=== PATIENT | female | born 1990 | race Two or more races ===

== ENCOUNTER 2017-01-26 14:40 | Emergency (ER) | payer OTHER ==
[~2017-01-26] VITALS: Ht 160 cm; Wt 70.9 kg
[2017-01-26 14:41] VITALS: BP 120/60
[2017-01-27] MEDS ORDERED: PROA1AER INH (09:59)
[2017-01-27] MEDS ORDERED: ULTR50TA PO (10:29)
[2017-01-27] MEDS ORDERED: NAPR500T PO (10:29)
[2017-01-27] MEDS ORDERED: ROBA500T PO (10:29)
== END 2017-01-26 17:30 | disposition left against medical advice (07) ==
LOC: M ED 15:06
DX: M54.9 Dorsalgia, unspecified (principal); Z53.21 Procedure and treatment not carried out due to patient leaving prior to being seen by health care provider

== ENCOUNTER 2017-01-26 19:20 | Emergency (ER) | payer OTHER ==
[~2017-01-26] VITALS: Ht 160 cm; Wt 70.8 kg
[2017-01-26 19:22] VITALS: BP 126/72
[2017-01-26] MEDS ORDERED: METHOCARBAMOL 1,000 MG/10 ML VIAL (J2800) IM ONE (22:30)
[2017-01-26] MEDS ORDERED: KETOROLAC 30 MG/ML VIAL (J1885) IM ONE (22:30)
[2017-01-27] MEDS ORDERED: PROA1AER INH (09:59)
[2017-01-27] MEDS ORDERED: NAPR500T PO (10:29)
[2017-01-27] MEDS ORDERED: ULTR50TA PO (10:29)
[2017-01-27] MEDS ORDERED: ROBA500T PO (10:29)
== END 2017-01-26 22:37 | disposition left against medical advice (07) ==
LOC: M ED 20:22
DX: M54.5 Low back pain (principal)

== ENCOUNTER 2017-01-27 09:50 | Emergency (ER) | payer OTHER ==
[~2017-01-27] VITALS: Ht 160 cm; Wt 70.8 kg
[2017-01-27] MEDS ORDERED: PROA1AER INH (09:59)
[2017-01-27] MEDS ORDERED: NAPR500T PO (10:29)
[2017-01-27] MEDS ORDERED: ROBA500T PO (10:29)
[2017-01-27] MEDS ORDERED: ULTR50TA PO (10:29)
[2017-01-27] MEDS ORDERED: KETOROLAC 30 MG/ML VIAL (J1885) IM ONE (10:30)
[2017-01-27 10:59] VITALS: BP 128/74
== END 2017-01-27 11:00 | disposition home or self-care (01) ==
LOC: M ED 10:05
DX: S39.012A Strain of muscle, fascia and tendon of lower back, initial encounter (principal); X58.XXXA Exposure to other specified factors, initial encounter; Y92.9 Unspecified place or not applicable; Y93.9 Activity, unspecified; Y99.9 Unspecified external cause status; M51.36 Other intervertebral disc degeneration, lumbar region; J45.909 Unspecified asthma, uncomplicated; Z79.899 Other long term (current) drug therapy
CPT/HCPCS: 81025; 96372; 99282; J1885

== ENCOUNTER 2017-03-13 07:22 | Emergency (ER) | payer OTHER ==
[~2017-03-13] VITALS: Ht 160 cm; Wt 68.0 kg
[~2017-03-13 07:22] MED LIST: NAPR500T PO; PROA1AER INH; ROBA500T PO; ULTR50TA PO
[2017-03-13] MEDS ORDERED: ONDANSETRON 4MG/2ML VIAL (J2405) IV ONE (08:00)
[2017-03-13] MEDS ORDERED: HYDROmorphone HCL 1 MG/ML SYRINGE (J1170) IV ONE ×2 (08:00→08:30)
[2017-03-13] MEDS ORDERED: NS 1,000 ML IV ONE (08:15)
[2017-03-13] MEDS ORDERED: KETOROLAC 30 MG/ML VIAL (J1885) IV ONE (08:30)
[2017-03-13 08:34] LABS: CONTROL LINE HCG INT CTR LINE PRESENT
[2017-03-13 08:37] LABS: BASO % 0.3 % (0.0-1.0); EOS # 0.2 K/mm3 (0.0-0.50); EOS % 1.2 % (0.0-3.0); LARGE UNSTAINED CELL # 0.2 K/mm3 (0.0-0.4); LARGE UNSTAINED CELL % 1.2 % (0.0-4.0); LYMPH # 4.4 K/mm3 (1.5-6.5); LYMPH % 27.6 % (24.0-44.0); MEAN CORPUSCULAR HEMOGLOBIN 31.3 pg (27.0-33.0); MEAN CORPUSCULAR HGB CONC 34.6 g/dl (32.0-36.5); MEAN CORPUSCULAR VOLUME 90.4 fl (80.0-96.0); MONO # 0.8 K/mm3 (0.0-0.8); MONO % 5.3 % (0.0-5.0); NEUTROPHILS # 10.2 K/mm3 (1.8-7.7); NEUTROPHILS % 64.4 % (36.0-66.0); PLATELET COUNT, AUTOMATED 342 k/mm3 (150-450); RED CELL DISTRIBUTION WIDTH 12.8 % (11.5-14.5); WHITE BLOOD COUNT 15.8 K/mm3 (4.0-10.0)
[2017-03-13 08:38] LABS: ALBUMIN 4.2 GM/DL (3.2-5.2); ALBUMIN/GLOBULIN RATIO 1.27 (1.00-1.93); ALKALINE PHOSPHATASE 62 U/L (45-117); ALT/SGPT 22 U/L (12-78); ANION GAP 9 MEQ/L (8-16); AST/SGOT 14 U/L (15-37); BILIRUBIN,DIRECT 0.2 MG/DL (0.0-0.2); BILIRUBIN,TOTAL 0.6 MG/DL (0.2-1.0); BLOOD UREA NITROGEN 11 MG/DL (7-18); CALCIUM LEVEL 8.9 MG/DL (8.5-10.1); CARBON DIOXIDE LEVEL 27 MEQ/L (21-32); CHLORIDE LEVEL 106 MEQ/L (98-107); CREATININE FOR GFR 1.04 MG/DL (0.55-1.02); GLOMERULAR FILTRATION RATE > 60.0 (>60); GLUCOSE, FASTING 103 MG/DL (70-105); POTASSIUM SERUM 3.2 MEQ/L (3.5-5.1); SODIUM LEVEL 142 MEQ/L (136-145); TOTAL PROTEIN 7.5 GM/DL (6.4-8.2)
[2017-03-13] MEDS ORDERED: ISOVUE-370 76% 100ML VIAL (Q9967) As Ordered ONE (09:40)
[2017-03-13] MEDS ORDERED: MORPHINE 4 MG/ML 1ML SYRINGE IV ONE (10:00)
--- NOTE | 2017-03-13 11:17 | REP ---
CT ABDOMEN AND PELVIS WITH IV CONTRAST: TECHNIQUE: Axial contrast enhanced images from the lung bases to the pubic symphysis using 100 mL Isovue 370 intravenous contrast material with multiplanar reformations. COMPARISON: 02/20/2016. The visualized lung bases demonstrate no infiltrate. The liver, spleen, adrenals and pancreas are normal in appearance. The right kidney appears normal. Left kidney demonstrates mild hydronephrosis and there is also mild left hydroureter caused by a 3 mm calculus in the distal left ureter. There is no abdominal aortic aneurysm. There is no adenopathy. There is no free air or free fluid. No pelvic mass is seen. There is metallic internal fixation in the proximal right femur. 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 IMPRESSION: Mild left hydroureteronephrosis caused by a 3 mm calculus in the distal left ureter. No evidence of appendicitis or other acute abnormality. Signed by Magen Lopez MD 03/13/2017 04:37 P
[2017-03-13] MEDS ORDERED: CIPR500T89 PO (12:32)
[2017-03-13] MEDS ORDERED: FLOM5CAP PO (12:35)
[2017-03-13] MEDS ORDERED: PERC5TAB6 PO (12:36)
[2017-03-13 12:52] VITALS: BP 124/68
== END 2017-03-13 12:53 | disposition home or self-care (01) ==
LOC: M ED 08:05
DX: N20.1 Calculus of ureter (principal); N39.0 Urinary tract infection, site not specified
CPT/HCPCS: 74177; 80048; 80076; 81001; 83605; 83690; 84703; 85025; 87086; 93041; 96374; 96375; 96376; 99285; J1170; J1885; J2405; Q9967

== ENCOUNTER 2017-03-29 09:53 | Emergency (ER) | payer OTHER ==
[~2017-03-29] VITALS: Ht 160 cm; Wt 68.0 kg
[~2017-03-29 09:53] MED LIST changes: +CIPR500T89 PO; +FLOM5CAP PO; +PERC5TAB6 PO
[2017-03-29] MEDS ORDERED: KETOROLAC 30 MG/ML VIAL (J1885) IV ONE (10:30)
[2017-03-29] MEDS ORDERED: ONDANSETRON 4MG/2ML VIAL (J2405) IV ONE (10:30)
[2017-03-29 10:45] LABS: BASO % 0.5 % (0.0-1.0); EOS # 0.2 K/mm3 (0.0-0.50); EOS % 2.7 % (0.0-3.0); LARGE UNSTAINED CELL # 0.1 K/mm3 (0.0-0.4); LARGE UNSTAINED CELL % 0.9 % (0.0-4.0); LYMPH # 1.7 K/mm3 (1.5-6.5); LYMPH % 21.2 % (24.0-44.0); MEAN CORPUSCULAR HEMOGLOBIN 29.5 pg (27.0-33.0); MEAN CORPUSCULAR HGB CONC 32.9 g/dl (32.0-36.5); MEAN CORPUSCULAR VOLUME 89.7 fl (80.0-96.0); MONO # 0.2 K/mm3 (0.0-0.8); MONO % 3.1 % (0.0-5.0); NEUTROPHILS # 5.4 K/mm3 (1.8-7.7); NEUTROPHILS % 71.5 % (36.0-66.0); PLATELET COUNT, AUTOMATED 340 k/mm3 (150-450); RED CELL DISTRIBUTION WIDTH 12.5 % (11.5-14.5); WHITE BLOOD COUNT 7.6 K/mm3 (4.0-10.0)
[2017-03-29 11:00] LABS: ANION GAP 5 MEQ/L (8-16); BLOOD UREA NITROGEN 11 MG/DL (7-18); CALCIUM LEVEL 9.2 MG/DL (8.5-10.1); CARBON DIOXIDE LEVEL 29 MEQ/L (21-32); CHLORIDE LEVEL 106 MEQ/L (98-107); CREATININE FOR GFR 0.72 MG/DL (0.55-1.02); GLOMERULAR FILTRATION RATE > 60.0 (>60); GLUCOSE, FASTING 82 MG/DL (70-105); POTASSIUM SERUM 4.3 MEQ/L (3.5-5.1); SODIUM LEVEL 140 MEQ/L (136-145)
[2017-03-29] MEDS ORDERED: ZOFR4TAB3 PO (11:47)
[2017-03-29] MEDS ORDERED: NORCOTAB PO (11:47)
[2017-03-29 11:59] VITALS: BP 127/76
--- NOTE | 2017-03-29 12:03 | REP ---
RENAL ULTRASOUND: Real-time sonographic evaluation of the kidneys performed. The kidneys are normal in size and echotexture, right kidney measuring 11.3 x 4.8 x 5.6 cm and left kidney 12.0 x 6.0 x 6.5 cm. There is no hydronephrosis bilaterally. There appears to be a 6 mm intrarenal calculus within the right collecting system 6 mm in diameter. No renal mass is seen. Urinary bladder is empty and cannot be evaluated. IMPRESSION: No hydronephrosis. There appears to be an intrarenal calculus on the right measuring 6 mm in diameter. Signed by Magen Lopez MD 03/29/2017 07:56 P
== END 2017-03-29 12:11 | disposition home or self-care (01) ==
LOC: M ED 10:51
DX: N20.0 Calculus of kidney (principal)
CPT/HCPCS: 76775; 80048; 81001; 81025; 85025; 86140; 87086; 96374; 96375; 99283; J1885; J2405

== ENCOUNTER 2017-04-29 21:37 | Emergency (ER) | payer OTHER ==
[~2017-04-29] VITALS: Ht 160 cm; Wt 69.8 kg
[~2017-04-29 21:37] MED LIST changes: +NORCOTAB PO; +ZOFR4TAB3 PO
[2017-04-29] MEDS ORDERED: SYMB16INH INH (21:51)
[2017-04-29 22:56] LABS: CONTROL LINE HCG INT CTR LINE PRESENT
[2017-04-29 23:00] LABS: BASO % 0.5 % (0.0-1.0); EOS # 0.2 K/mm3 (0.0-0.50); EOS % 1.9 % (0.0-3.0); LARGE UNSTAINED CELL # 0.1 K/mm3 (0.0-0.4); LARGE UNSTAINED CELL % 1.2 % (0.0-4.0); LYMPH # 3.3 K/mm3 (1.5-6.5); MEAN CORPUSCULAR VOLUME 90.9 fl (80.0-96.0); MONO # 0.5 K/mm3 (0.0-0.8); MONO % 4.5 % (0.0-5.0); NEUTROPHILS # 6.8 K/mm3 (1.8-7.7); NEUTROPHILS % 62.9 % (36.0-66.0); PLATELET COUNT, AUTOMATED 316 k/mm3 (150-450); RED CELL DISTRIBUTION WIDTH 12.5 % (11.5-14.5); WHITE BLOOD COUNT 10.8 K/mm3 (4.0-10.0)
[2017-04-29 23:06] LABS: ALBUMIN/GLOBULIN RATIO 1.25 (1.00-1.93); ALKALINE PHOSPHATASE 61 U/L (45-117); ALT/SGPT 26 U/L (12-78); AMYLASE 63 U/L (25-115); ANION GAP 5 MEQ/L (8-16); AST/SGOT 18 U/L (15-37); BILIRUBIN,DIRECT < 0.1 MG/DL (0.0-0.2); BILIRUBIN,TOTAL 0.3 MG/DL (0.2-1.0); BLOOD UREA NITROGEN 10 MG/DL (7-18); CALCIUM LEVEL 8.8 MG/DL (8.5-10.1); CARBON DIOXIDE LEVEL 29 MEQ/L (21-32); CHLORIDE LEVEL 106 MEQ/L (98-107); CREATININE FOR GFR 0.74 MG/DL (0.55-1.02); GLOMERULAR FILTRATION RATE > 60.0 (>60); GLUCOSE, FASTING 78 MG/DL (70-105); POTASSIUM SERUM 3.7 MEQ/L (3.5-5.1); SODIUM LEVEL 140 MEQ/L (136-145); TOTAL PROTEIN 7.2 GM/DL (6.4-8.2)
--- NOTE | 2017-04-30 00:30 | REPUSA ---
Clinical history: Pain. Findings: Real-time transabdominal and transvaginal ultrasound images of the pelvis were obtained. An anteverted uterus is noted, measuring 6.9 x 3.6 x 4.2 cm. The uterus demonstrates normal echotexture and echogenicity There is a intrauterine gestational sac noted. The mean sac diameter measures 2.2 m m. No pole or yolk sac is identified however. There is no evidence of a subchorionic hemorrhage . The right ovary measures 2.8 x 2.1 x 2.2 cm. The left ovary measures 4.1 x 2.6 x 2.5 cm. A compl ex left ovarian cyst measures 2.1 x 2.1 x 1.6 cm. No adnexal masses are seen. Color Doppler flow is seen within both ovaries. There is no evidence of free fluid. Impression: 1. Small intrauterine gestational sac measuring 4 weeks 6 days by ultrasound measurements. No p ole is identified at this time. This is likely because of the early age of the , although mi ssed and ectopic are still considerations. Follow-up with serial serum beta hCG le vels is recommended for further evaluation. 2. Complex left ovarian corpus luteum cyst. LAUME
[2017-04-30 01:34] VITALS: BP 103/68
[2017-04-30 02:06] LABS: HCG, SERUM QUANTITATIVE 966 MIU/ML
== END 2017-04-30 01:47 | disposition home or self-care (01) ==
LOC: M ED 22:31
DX: O26.891 Other specified pregnancy related conditions, first trimester (principal); M54.9 Dorsalgia, unspecified; Z3A.08 8 weeks gestation of pregnancy; O99.331 Smoking (tobacco) complicating pregnancy, first trimester; F17.210 Nicotine dependence, cigarettes, uncomplicated

== ENCOUNTER 2017-05-01 09:16 | Emergency (ER) | payer OTHER ==
[~2017-05-01] VITALS: Ht 162.6 cm; Wt 70.9 kg
[~2017-05-01 09:16] MED LIST changes: +SYMB16INH INH
[2017-05-01 10:49] LABS: BASO % 0.3 % (0.0-1.0); EOS # 0.1 K/mm3 (0.0-0.50); EOS % 1.5 % (0.0-3.0); LARGE UNSTAINED CELL # 0.1 K/mm3 (0.0-0.4); LARGE UNSTAINED CELL % 1.4 % (0.0-4.0); LYMPH # 2.1 K/mm3 (1.5-6.5); LYMPH % 26.4 % (24.0-44.0); MEAN CORPUSCULAR HEMOGLOBIN 30.9 pg (27.0-33.0); MEAN CORPUSCULAR HGB CONC 33.4 g/dl (32.0-36.5); MEAN CORPUSCULAR VOLUME 92.5 fl (80.0-96.0); MONO # 0.3 K/mm3 (0.0-0.8); MONO % 4.1 % (0.0-5.0); NEUTROPHILS # 5.3 K/mm3 (1.8-7.7); NEUTROPHILS % 66.3 % (36.0-66.0); PLATELET COUNT, AUTOMATED 327 k/mm3 (150-450); RED CELL DISTRIBUTION WIDTH 12.4 % (11.5-14.5)
[2017-05-01] MEDS ORDERED: AZITHROMYCIN 250 MG TAB PO ONE (13:00)
[2017-05-01] MEDS ORDERED: RHOGAM 300 MCG (1500 IU) INJ (J2790) IM SCH (13:15)
[2017-05-01 15:22] VITALS: BP 117/65
== END 2017-05-01 15:24 | disposition home or self-care (01) ==
LOC: M ED 10:12
DX: O20.0 Threatened abortion (principal); Z20.2 Contact with and (suspected) exposure to infections with a predominantly sexual mode of transmission; O99.511 Diseases of the respiratory system complicating pregnancy, first trimester; J45.909 Unspecified asthma, uncomplicated; Z3A.00 Weeks of gestation of pregnancy not specified; Z79.899 Other long term (current) drug therapy

== ENCOUNTER 2017-05-04 13:45 | Emergency (ER) | payer OTHER ==
[~2017-05-04] VITALS: Ht 160 cm; Wt 70.7 kg
[2017-05-04 15:29] VITALS: BP 132/69
== END 2017-05-04 15:42 | disposition home or self-care (01) ==
LOC: M ED 14:42
DX: O20.0 Threatened abortion (principal); Z87.891 Personal history of nicotine dependence; Z3A.00 Weeks of gestation of pregnancy not specified

== ENCOUNTER → 2017-05-06 | Outpatient (CLI) | payer OTHER | LOC: M LAB 09:26 | PROVIDERS: ATTEND Nurse Practitioner Family | DX: O20.0 Threatened abortion (principal) ==

== ENCOUNTER → 2017-05-09 | Outpatient (CLI) | payer OTHER ==
[2017-05-09 11:43] LABS: BASO % 0.2 % (0.0-1.0); EOS # 0.1 K/mm3 (0.0-0.50); EOS % 0.7 % (0.0-3.0); LARGE UNSTAINED CELL # 0.1 K/mm3 (0.0-0.4); LARGE UNSTAINED CELL % 0.9 % (0.0-4.0); LYMPH # 1.9 K/mm3 (1.5-6.5); LYMPH % 19.3 % (24.0-44.0); MEAN CORPUSCULAR HEMOGLOBIN 30.5 pg (27.0-33.0); MEAN CORPUSCULAR HGB CONC 33.8 g/dl (32.0-36.5); MEAN CORPUSCULAR VOLUME 90.3 fl (80.0-96.0); MONO # 0.4 K/mm3 (0.0-0.8); MONO % 3.9 % (0.0-5.0); NEUTROPHILS # 7.2 K/mm3 (1.8-7.7); NEUTROPHILS % 74.9 % (36.0-66.0); PLATELET COUNT, AUTOMATED 337 k/mm3 (150-450); RED CELL DISTRIBUTION WIDTH 12.4 % (11.5-14.5); WHITE BLOOD COUNT 9.5 K/mm3 (4.0-10.0)
[2017-05-11 10:04] LABS: HBsAg Prenatal NEGATIVE (NEGATIVE)
== END ==
LOC: M LAB 10:59
PROVIDERS: ATTEND Advanced Practice Midwife
DX: Z34.81 Encounter for supervision of other normal pregnancy, first trimester (principal)

== ENCOUNTER → 2017-06-12 | Outpatient (CLI) | payer OTHER, SELFPAY ==
[~2017-06-12] MED LIST changes: +CIPR-249 PO; -CIPR500T89 PO; +FLAG500T PO; +PERC5TAB12 PO; -PERC5TAB6 PO; +PRENTAB52 PO; -PROA1AER INH; +PROAAER10 INH; -ULTR50TA PO; +ULTR50TA8 PO
--- NOTE | 2017-06-12 13:48 | REP ---
RENAL ULTRASOUND: Real-time sonographic evaluation of the kidneys performed and demonstrates both kidneys to be normal in size and echotexture, right kidney measuring 11.6 x 6.3 x 5.6 cm and left kidney 11.6 x 6.0 x 5.2 cm. There is no hydronephrosis bilaterally and no evidence of renal mass. Possible 6 mm calculus is seen in the upper pole of the right kidney. Patient is and the intrauterine fetus demonstrates a heart rate of 175 beats per minute. Urinary bladder is only minimally distended and not optimally evaluated. IMPRESSION: No hydronephrosis bilaterally. Possible 6 mm calculus in the upper pole of the right renal collecting system. Signed by Magen Lopez MD 06/12/2017 03:31 P
== END ==
LOC: M RAD 11:17
PROVIDERS: ATTEND Advanced Practice Midwife
DX: N28.1 Cyst of kidney, acquired (principal)

== ENCOUNTER → 2017-06-25 | Outpatient (CLI) | payer MEDICAID, OTHER, SELFPAY ==
[2017-06-25 18:15] LABS: MEAN CORPUSCULAR HEMOGLOBIN 30.6 pg (27.0-33.0); MEAN CORPUSCULAR HGB CONC 33.6 g/dl (32.0-36.5); MEAN CORPUSCULAR VOLUME 91.2 fl (80.0-96.0); RED CELL DISTRIBUTION WIDTH 12.8 % (11.5-14.5); WHITE BLOOD COUNT 9.6 K/mm3 (4.0-10.0)
[2017-06-25 18:42] LABS: ALBUMIN 3.8 GM/DL (3.2-5.2); ANION GAP 7 MEQ/L (8-16); BLOOD UREA NITROGEN 6 MG/DL (7-18); CALCIUM LEVEL 9.4 MG/DL (8.5-10.1); CARBON DIOXIDE LEVEL 26 MEQ/L (21-32); CHLORIDE LEVEL 103 MEQ/L (98-107); CREATININE FOR GFR 0.51 MG/DL (0.55-1.02); GLOMERULAR FILTRATION RATE > 60.0 (>60); GLUCOSE, FASTING 83 MG/DL (70-105); PHOSPHORUS LEVEL 3.9 MG/DL (2.5-4.9); POTASSIUM SERUM 4.2 MEQ/L (3.5-5.1); SODIUM LEVEL 136 MEQ/L (136-145)
== END ==
LOC: M SMT 11:06
PROVIDERS: ATTEND Advanced Practice Midwife
DX: Z34.81 Encounter for supervision of other normal pregnancy, first trimester (principal); M54.5 Low back pain

== ENCOUNTER 2017-07-13 10:12 | Emergency (ER) | payer MEDICAID, OTHER, SELFPAY ==
[~2017-07-13] VITALS: Ht 157.5 cm; Wt 73.7 kg
[~2017-07-13 10:12] MED LIST changes: -FLAG500T PO
[2017-07-13] MEDS ORDERED: ACETAMINOPHEN 325 MG TAB PO ONE (12:15)
--- NOTE | 2017-07-13 13:33 | REP ---
OB ULTRASOUND: Real-time sonographic evaluation of gravid uterus performed. There is a single living intrauterine gestation, estimated gestational age 15 weeks 3 days, EDC 01/01/2018, with today's measurements indicating appropriate growth. BPD 32 mm = 16 weeks 0 days, 75th percentile HC 118 mm = 15 weeks 6 days, 66th percentile AC 98 mm = 15 weeks 6 days, 62nd percentile Femur length 18 mm = 15 weeks 2 days, 46th percentile HC/AC ratio 1.21, within normal range. Estimated weight 130 grams, 51st percentile. Cervix is closed and measures 2.9 cm in length. heart rate 147 beats per minute. There is no subchorionic hemorrhage. Placenta is anterior with no previa. No maternal adnexal region abnormalities are seen. Signed by Magen Lopez MD 07/13/2017 04:36 P
[2017-07-13] MEDS ORDERED: FLAG500T PO (13:34)
[2017-07-13 13:43] VITALS: BP 131/73
[2017-07-13] MEDS ORDERED: metroNIDAZOLE (FLAGYL) 500 MG TAB PO ONE (13:45)
== END 2017-07-13 13:47 | disposition home or self-care (01) ==
LOC: M ED 10:12
DX: O23.592 Infection of other part of genital tract in pregnancy, second trimester (principal); Z3A.14 14 weeks gestation of pregnancy

== ENCOUNTER 2017-07-29 13:30 | Emergency (ER) | payer MEDICAID, OTHER ==
[~2017-07-29] VITALS: Ht 160 cm; Wt 74.1 kg
[~2017-07-29 13:30] MED LIST changes: +FLAG500T PO
--- NOTE | 2017-07-29 15:07 | REP ---
Clinical: Decreased motion. Comparison: 07/13/2017. Findings: Examination demonstrates a single live intrauterine in cephalic presentation. motion is identified by technologist. Placenta is noted anteriorly and grade zero without evidence for placenta previa or abruption. Amniotic fluid volume is normal. Cervix measures 4.9 cm in length and appears closed. No evidence for nuchal cord. Gestational age by LMP 17 weeks 5 day with CHRISTOFER 01/01/2018 . Gestational age by current measurements 17 week 6 day with CHRISTOFER 12/31/2017 . FHR equals 163 beats per minute. BPD 4.2 cm 18 weeks 4 days HC 14.8 cm 17 weeks 6 days AC 12.3 cm 18 weeks 0 days FL 2.5 cm 17 weeks 3 days HL 2.4 cm 817 weeks 4 days HC/AC ratio 1.20 Estimated weight 208 grams ( 49th percentile). Impression: Single live intrauterine in cephalic presentation demonstrating appropriate interval growth. motion is appreciated. No gross abnormalities are identified. Complete anatomical assessment should be performed at 20 - 21 weeks. Signed by Suhail Pérez MD 07/29/2017 02:59 P
[2017-07-29 15:28] VITALS: BP 128/69
== END 2017-07-29 15:30 | disposition home or self-care (01) ==
LOC: M ED 13:30
DX: O26.892 Other specified pregnancy related conditions, second trimester (principal); O99.512 Diseases of the respiratory system complicating pregnancy, second trimester; J45.909 Unspecified asthma, uncomplicated; Z87.442 Personal history of urinary calculi; Z91.030 Bee allergy status; Z3A.17 17 weeks gestation of pregnancy

== ENCOUNTER → 2017-08-17 | Outpatient (CLI) | payer MEDICAID, OTHER ==
--- NOTE | 2017-08-17 11:55 | REP ---
Obstetric ultrasound for anatomy: There is a single intrauterine gestation in a breech presentation. There is motion and cardiac activity. The heart rate is 149 beats per minute. The placenta is anterior. There is no placenta previa or abruptio. Placenta is grade zero. The amniotic fluid volume is normal subjectively. The cervix measures 3.0 cm length. Sternal adnexa and cul-de-sac are unremarkable. By the study today gestational age is 20-week 6 days with an CHRISTOFER of 12/29/2017. By the first ultrasound gestational age is 20 weeks 3 days with an CHRISTOFER of 10/31/2018. weight is 393 grams (0 pounds, 13 ounces). This is the 63rd percentile for 20 weeks 3 days. The following anatomic structures are identified and are unremarkable: Intracranial lateral ventricles, choroid plexus, cerebellum, cisterna magna, face, upper lip, lungs, four-chamber heart, cardiac left ventricular outflow tract, diaphragm, stomach, cord insertion, three-vessel cord, bladder, spine and upper lower extremities. Suboptimally demonstrated is the cardiac right ventricular outflow tract. The renal pelves measure approximate millimeters in AP diameter bilaterally, compatible with hydronephrosis. Referral to a center might be considered. A followup of the cardiac right ventricular outflow tract might also be considered. Signed by Magen El MD 08/17/2017 11:47 A
== END ==
LOC: M RAD 10:27
PROVIDERS: ATTEND Advanced Practice Midwife
DX: Z36.2 Encounter for other antenatal screening follow-up (principal)

== ENCOUNTER → 2017-08-31 | Outpatient (CLI) | payer OTHER ==
--- NOTE | 2017-09-01 04:40 | REP ---
Clinical: Anatomical evaluation. Comparison: 08/17/2017 . Findings: Examination demonstrates a single live intrauterine in cephalic presentation. motion is identified by technologist. Placenta is noted anteriorly and grade one without evidence for placenta previa or abruption. Amniotic fluid volume is normal. Cervix measures 3.7 cm in length and appears closed. No evidence for nuchal cord. Gestational age by LMP 21 weeks 6 days with CHRISTOFER 01/05/2018 . Gestational age by current measurements 23 weeks 2 days with CHRISTOFER 12/26/2017 . FHR equals 144 beats per minute. Estimated weight 562 grams ( 68 percentile based on age by first ultrasound at 22 weeks 3 days ). Anatomical assessment demonstrates normal structures including cranium, choroid plexus, cavum, cerebellum/posterior fossa, facial features, lungs, diaphragm, stomach, cord insertion/three-vessel cord, kidneys/bladder, spine, and extremities. Moderate bilateral hydronephrosis is appreciated. Impression: Single live intrauterine in cephalic presentation demonstrating appropriate interval growth. Moderate hydronephrosis warrants followup renal ultrasound examination. Signed by Suhail Pérez MD 09/01/2017 04:32 A
== END ==
LOC: M RAD 09:55 → M LAB 09:55
PROVIDERS: ATTEND Obstetrics & Gynecology
DX: Z34.82 Encounter for supervision of other normal pregnancy, second trimester (principal); Z3A.20 20 weeks gestation of pregnancy

== ENCOUNTER → 2017-10-22 | Outpatient (CLI) | payer OTHER ==
--- NOTE | 2017-10-22 20:17 | REP ---
FOLLOWUP OBSTETRICAL ULTRASOUND: CLINICAL: Anatomical reevaluation. COMPARISON: 08/31/2017 FINDINGS: Ultrasound examination demonstrates a single live intrauterine in cephalic presentation. motion was identified by technologist. Placenta is noted anteriorly and grade 2 without evidence for placenta previa or abruption. Amniotic fluid volume is within normal limits. Cervix measures 3.1 cm in length and appears closed. No evidence for nuchal cord. Gestational age by first ultrasound 29 weeks 6 days with estimated date of delivery 01/01/2018. FHR 135 beats per minute. Estimated weight 1525 grams (50th percentile). Amniotic fluid index 10.9 cm (9.0 - 23.3). Umbilical cord S/D ratio equals 2.58 (2.50 - 3.50). Anatomical assessment again demonstrates mild to moderate hydronephrosis right renal pelvis measuring 8.4 mm in diameter and left renal pelvis measuring 9.1 mm in diameter. IMPRESSION: Single live intrauterine in cephalic presentation. Mild to moderate bilateral hydronephrosis is again appreciated. No further anatomical abnormalities are identified. Signed by Suhail Pérez MD 10/23/2017 08:13 A
== END ==
LOC: M RAD 12:06
PROVIDERS: ATTEND Obstetrics & Gynecology
DX: Z34.83 Encounter for supervision of other normal pregnancy, third trimester (principal); Z3A.29 29 weeks gestation of pregnancy

== ENCOUNTER → 2017-12-10 | Outpatient (REF) | payer OTHER | LOC: M LAB REF 16:58 | DX: Z34.83 Encounter for supervision of other normal pregnancy, third trimester (principal) ==

== ENCOUNTER 2017-12-24 00:39 | Inpatient (IN) | payer OTHER ==
[2017-12-24] MEDS: LACTATED RINGER'S 1000 ML IV (01:42)
[2017-12-24 01:55] LABS: MEAN CORPUSCULAR HEMOGLOBIN 28.6 pg (27.0-33.0); MEAN CORPUSCULAR HGB CONC 33.3 g/dl (32.0-36.5); MEAN CORPUSCULAR VOLUME 85.7 fl (80.0-96.0); PLATELET COUNT, AUTOMATED 191 10^3/uL (150-450); RED BLOOD COUNT 4.55 10^6/uL (4.00-5.40); WHITE BLOOD COUNT 13.2 10^3/uL (4.0-10.0)
[2017-12-24] MEDS ORDERED: FENTANYL 2MCG/ML ROPIVACAINE 0.2% IN 0.9% NACL 200ML IVBAG As Ordered (02:25)
[2017-12-24] MEDS ORDERED: REFRIGERATOR IV KEYS XX (03:07)
[2017-12-24] MEDS ORDERED: ePHEDrine INJ 50 MG/ML VIAL IV (03:07)
[2017-12-24] MEDS ORDERED: FENTANYL/ROPIVACAINE/NACL BAG 200 ML EPIDURAL (03:07)
[2017-12-24] MEDS ORDERED: EPIDURAL/PCA KEYS XX (03:07)
[2017-12-24] MEDS ORDERED: LACTATED RINGER'S 1000 ML IV (03:07)
[2017-12-24] MEDS ORDERED: NALOXONE INJ 0.4 MG/1 ML VIAL (J2310) IV (03:07)
[2017-12-24] MEDS ORDERED: EPIDURAL COMMENT XX (03:07)
[2017-12-24] MEDS ORDERED: diphenhydrAMINE INJ 50MG/ML VIAL (J1200) IV (03:07)
[2017-12-24] MEDS: ONDANSETRON 4MG/2ML VIAL (J2405) IV (06:35)
[2017-12-24] MEDS: LR 1,000 ML IV ×2 (06:35→14:41)
[2017-12-24] MEDS ORDERED: OXYTOCIN 30 UNITS IN 0.9% NaCl 500ML IV BAG (J2590) As Ordered (07:02)
[2017-12-24] MEDS: PRENATAL VITAMINS CHEWABLE TABLET PO (09:00)
[2017-12-24] MEDS: OXYTOCIN DRIP 30 UNITS in APPROPRIATE DILUENT 1 EA IV (14:41)
[2017-12-24] MEDS ORDERED: ONDANSETRON 4MG/2ML VIAL (J2405) IV (14:45)
[2017-12-24] MEDS ORDERED: PROMETHAZINE 25 MG TAB PO (14:45)
[2017-12-24] MEDS ORDERED: DIBUCAINE 1% OINTMENT 30GM TOP (14:45)
[2017-12-24] MEDS ORDERED: MEASLES,MUMPS,RUBELLA VACCINE INJ (MMR-II) (90707) SC (14:45)
[2017-12-24] MEDS: IBUPROFEN 800 MG TAB PO (18:42)
[2017-12-24] MEDS: DOCUSATE SODIUM 100 MG CAP PO (21:43)
[2017-12-24] MEDS: ACETAMINOPHEN 500 MG TAB PO (21:44)
[2017-12-25] MEDS: IBUPROFEN 800 MG TAB PO (06:49)
[2017-12-25] MEDS: PRENATAL VITAMINS CHEWABLE TABLET PO (07:51)
[2017-12-25] MEDS: INFLUENZA QUADRIVALENT PF VACCINE 0.5ML SYRINGE (90686) IM (09:00)
[2017-12-25 10:52] LABS: FETAL SCREEN PROF. 1 1
[2017-12-25] MEDS: RHOGAM 300 MCG (1500 IU) INJ (J2790) IM (11:16)
[2017-12-25] MEDS ORDERED: INFLUENZA QUADRIVALENT PF VACCINE 0.5ML SYRINGE (90686) IM (16:45)
[2017-12-25] MEDS: ACETAMINOPHEN 500 MG TAB PO (20:38)
[2017-12-26] MEDS: ACETAMINOPHEN 500 MG TAB PO (06:03)
[2017-12-26] MEDS: PRENATAL VITAMINS CHEWABLE TABLET PO (09:13)
== END 2017-12-26 10:20 | disposition home or self-care (01) | DRG 560 ==
LOC: M LDO 00:39 → M LDI 01:15 → M OBS 14:49
PROVIDERS: Obstetrics & Gynecology; Pediatrics
PROC: 10E0XZZ Delivery of Products of Conception, External Approach (ICD-10-PCS; principal; 2017-12-24)
PROC: 0HQ9XZZ Repair Perineum Skin, External Approach (ICD-10-PCS; 2017-12-24)
PROC: 30233S1 Transfusion of Nonautologous Globulin into Peripheral Vein, Percutaneous Approach (ICD-10-PCS; 2017-12-25)
DX: O69.2XX0 Labor and delivery complicated by other cord entanglement, with compression, not applicable or unspecified (principal); O70.0 First degree perineal laceration during delivery; Z37.0 Single live birth; Z3A.38 38 weeks gestation of pregnancy

== ENCOUNTER 2018-01-27 19:01 | Emergency (ER) | payer OTHER | END 2018-01-27 19:58 | disposition left against medical advice (07) | LOC: M ED 19:01 | DX: Z53.29 Procedure and treatment not carried out because of patient's decision for other reasons (principal) ==

== ENCOUNTER 2018-01-29 17:13 | Emergency (ER) | payer OTHER | END 2018-01-29 19:48 | disposition left against medical advice (07) | LOC: M ED 17:13 | DX: Z53.29 Procedure and treatment not carried out because of patient's decision for other reasons (principal) ==

== ENCOUNTER 2018-03-23 09:24 | Emergency (ER) | payer OTHER ==
[2018-03-23] MEDS: KETOROLAC 30 MG/ML VIAL (J1885) IV (10:00)
[2018-03-23] MEDS ORDERED: FLEET OIL RETENTION ENEMA PR (11:00)
[2018-03-23 11:38] LABS: SP GRAVITY,URINE MANUAL REFLEX 1.024 (1.002-1.035)
[2018-03-23 11:39] LABS: BILIRUBIN, URINE MANUAL OBSCURED (NEGATIVE); BLOOD URINE MANUAL RFX OBSCURED (NEGATIVE); GLUCOSE, URINE (UA) MANUAL OBSCURED mg/dL (NEGATIVE); KETONE, URINE MANUAL OBSCURED mg/dL (NEGATIVE); MICROSCOPIC INDICATED? RFX YES (NO); NITRITE, URINE MANUAL RFX OBSCURED (NEGATIVE); PROTEIN, URINE MANUAL REFLEX OBSCURED mg/dL (NEGATIVE); UROBILINOGEN, URINE MANUAL OBSCURED mg/dl (NORMAL)
[2018-03-23 11:42] LABS: BACTERIA, URINE NONE SEEN; HYALINE CAST, URINE NONE SEEN /lpf (0-1); MICROSCOPIC EXAM PERFORMED; RBC, URINE TNTC /hpf (0-3); SQUAMOUS EPITHELIAL CELL URINE NONE SEEN /hpf (SMALL AMT); WBC, URINE MAN RFX NONE SEEN /hpf (0-3)
[2018-03-23] MEDS: FLEET OIL RETENTION ENEMA PR (11:50)
== END 2018-03-23 16:46 | disposition home or self-care (01) ==
LOC: M ED 09:24
DX: R31.9 Hematuria, unspecified (principal); Z96.0 Presence of urogenital implants; K59.00 Constipation, unspecified; F43.10 Post-traumatic stress disorder, unspecified; F14.10 Cocaine abuse, uncomplicated; N13.30 Unspecified hydronephrosis; Z91.030 Bee allergy status
CPT/HCPCS: J1885

== ENCOUNTER 2018-09-14 11:02 | Emergency (ER) | payer OTHER ==
[2018-09-14] MEDS: METHOCARBAMOL 750 MG TAB PO (11:00)
[2018-09-14] MEDS: traMADol 50 MG TAB PO (11:00)
[2018-09-14 11:55] LABS: APPEARANCE, URINE CLOUDY (CLEAR); BACTERIA, URINE AUTO NEGATIVE (NEGATIVE); BILIRUBIN, URINE AUTO NEGATIVE (NEGATIVE); BLOOD, URINE BLOOD NEGATIVE (NEGATIVE); COLOR, URINE YELLOW (YELLOW); GLUCOSE, URINE (UA) AUTO NEGATIVE (NEGATIVE); KETONE, URINE AUTO NEGATIVE (NEGATIVE); LEUKOCYTE ESTERASE, URINE AUTO NEGATIVE (NEGATIVE); MUCUS, URINE SMALL (NEGATIVE); NITRITE, URINE AUTO NEGATIVE (NEGATIVE); PROTEIN, URINE AUTO NEGATIVE (NEGATIVE); RBC, URINE AUTO 0 /HPF (0-3); SQUAMOUS EPITHELIAL CELL UR AU 5 /HPF (0-6); UROBILINOGEN, URINE AUTO 0.2 mg/dL (0.0-2.0); WBC, URINE AUTO 0 /HPF (0-3)
== END 2018-09-14 12:48 | disposition home or self-care (01) ==
LOC: M ED 11:02
DX: M16.11 Unilateral primary osteoarthritis, right hip (principal); M25.551 Pain in right hip; M54.5 Low back pain; M51.36 Other intervertebral disc degeneration, lumbar region; J45.909 Unspecified asthma, uncomplicated; Z87.442 Personal history of urinary calculi; Z91.030 Bee allergy status
CPT/HCPCS: 73521

== ENCOUNTER → 2019-01-06 | Outpatient (CLI) | payer OTHER ==
[~2019-01-06] MED LIST changes: +ADVI200C5 PO; +COLA100C5 PO; +FLOM0.4C39 PO; -FLOM5CAP PO; +HYDR-3715 PO; +IBUP-1022 PO; +MAPA500T2 PO; +MIRA3350 PO; +NAPR-837 PO; -NAPR500T PO; -NORCOTAB PO; +PRENTAB9 PO; +PYRI1TAB5 PO; +ZOFR4TAB14 PO; -ZOFR4TAB3 PO
[2019-01-06 18:38] LABS: BASO # 0.1 10^3/uL (0.0-0.2); BASO % 0.5 % (0.0-1.0); EOS # 0.1 10^3/uL (0.0-0.50); LYMPH % 31.9 % (24.0-44.0); MEAN CORPUSCULAR HEMOGLOBIN 29.1 pg (27.0-33.0); MEAN CORPUSCULAR HGB CONC 32.5 g/dl (32.0-36.5); MEAN CORPUSCULAR VOLUME 89.7 fl (80.0-96.0); MONO # 0.6 10^3/uL (0.0-0.8); MONO % 6.8 % (0.0-5.0); NEUTROPHILS # 5.6 10^3/uL (1.8-7.7); NEUTROPHILS % 59.6 % (36.0-66.0); PLATELET COUNT, AUTOMATED 359 10^3/uL (150-450); RED BLOOD COUNT 4.46 10^6/uL (4.00-5.40); WHITE BLOOD COUNT 9.4 10^3/uL (4.0-10.0)
[2019-01-06 19:36] LABS: CHLAMYDIA DNA AMPLIFICATION NEGATIVE (NEGATIVE); GC DNA AMPLIFICATION NEGATIVE (NEGATIVE)
[2019-01-07 12:24] LABS: HEPATITIS C VIRUS ABY INDEX < 0.0 INDEX (<0.8); HIV 1&2 SCREEN CENTAUR NEGATIVE (NEGATIVE); RUBELLA IgG QUALITATIVE IMMUNE (IMMUNE)
== END ==
LOC: M SMT 13:48
PROVIDERS: ATTEND Advanced Practice Midwife
DX: Z36.89 Encounter for other specified antenatal screening (principal)

== ENCOUNTER → 2019-02-18 | Outpatient (CLI) | payer OTHER | LOC: M SMT 13:20 | PROVIDERS: ATTEND Advanced Practice Midwife | DX: Z34.81 Encounter for supervision of other normal pregnancy, first trimester (principal) ==

== ENCOUNTER → 2019-03-29 | Outpatient (CLI) | payer OTHER ==
--- NOTE | 2019-03-30 06:48 | REP ---
Clinical: Anatomical evaluation. Comparison: None . Findings: Examination demonstrates a single live intrauterine in breech presentation. motion is identified by technologist. Placenta is noted posterior and grade grade zero without evidence for placenta previa or abruption. Amniotic fluid volume is normal. Cervix measures 3.4 cm in length and appears closed. No evidence for nuchal cord. Gestational age by LMP 18 weeks 5 days with CHRISTOFER 08/25/2019 . Gestational age by current measurements 19 weeks 0 days with CHRISTOFER 08/23/2019 . FHR equals 149 beats per minute. BPD 4.3 cm 19 weeks 0 days HC 16.1 cm 18 weeks 6 days AC 13.8 cm 19 weeks 2 days FL 2.8 cm 18 weeks 5 days HL 2.8 cm 19 weeks 0 days HC/AC ratio 1.17 Estimated weight 268 grams (57 percentile). Anatomical assessment demonstrates normal structures including cranium, cavum, cerebellum/posterior fossa, lungs, diaphragm, stomach, cord insertion/three-vessel cord, kidneys/bladder, and extremities. Limited evaluation of the cord plexus, facial features, heart/ventricular outflow tracts and spine noted. Impression: 1. Single live intrauterine in breech presentation demonstrating appropriate interval growth. 2. Anatomical limitations as noted above warrant reevaluation and follow-up. Electronically Signed by Suhail Pérez MD 03/30/2019 06:40 A
== END ==
LOC: M RAD 12:27
PROVIDERS: ATTEND Obstetrics & Gynecology
DX: Z34.82 Encounter for supervision of other normal pregnancy, second trimester (principal); Z3A.19 19 weeks gestation of pregnancy

== ENCOUNTER 2019-04-06 22:05 | Outpatient (CLI) | payer OTHER ==
[~2019-04-06] VITALS: Ht 160 cm; Wt 75.6 kg
[2019-04-06 22:23] VITALS: BP 158/81
[2019-04-06] MEDS ORDERED: ONDANSETRON 4 MG ORAL DISINTEGRATING TAB (Q0162 PER 1MG) SL PRN (22:45)
[2019-04-06] MEDS ORDERED: PERCOCET 5MG/325MG TAB PO PRN (22:45)
[2019-04-06] MEDS: PERCOCET 5MG/325MG TAB PO PRN (22:47)
[2019-04-06] MEDS ORDERED: MAPA500T2 PO (22:54)
[2019-04-06] MEDS ORDERED: PRENTAB9 PO (22:55)
[2019-04-07] MEDS: PERCOCET 5MG/325MG TAB PO PRN (02:31)
[2019-04-07 02:33] VITALS: BP 92/52
== END 2019-04-07 05:00 | disposition home or self-care (01) ==
LOC: M LDO 22:05
PROVIDERS: ATTEND Advanced Practice Midwife
DX: O99.89 Other specified diseases and conditions complicating pregnancy, childbirth and the puerperium (principal); M25.559 Pain in unspecified hip; O99.333 Smoking (tobacco) complicating pregnancy, third trimester; Z3A.19 19 weeks gestation of pregnancy
CPT/HCPCS: 87086; 87491; 87591; G0378; G0463; Q0162

== ENCOUNTER → 2019-04-06 | Outpatient (REF) | payer OTHER ==
[2019-04-06 15:37] LABS: CHLAMYDIA DNA AMPLIFICATION NEGATIVE (NEGATIVE); GC DNA AMPLIFICATION NEGATIVE (NEGATIVE)
== END ==
LOC: M LAB REF 12:57
PROVIDERS: ATTEND Advanced Practice Midwife
DX: Z34.82 Encounter for supervision of other normal pregnancy, second trimester (principal); Z3A.00 Weeks of gestation of pregnancy not specified

== ENCOUNTER → 2019-04-29 | Outpatient (CLI) | payer OTHER ==
--- NOTE | 2019-04-29 19:25 | REP ---
OB ULTRASOUND: Real-time sonographic evaluation of the gravid uterus is performed. There is a single living intrauterine gestation, estimated gestational age 23 weeks 1 day, EDC 08/25/2019. Today's measurements indicate appropriate growth. BPD 59 mm = 24 weeks 2 days, 73rd percentile HC 211 mm = 23 weeks 1 day, 53rd percentile AC 189 mm = 23 weeks 4 days, 62nd percentile FL 39 mm = 22 weeks 4 days, 36th percentile HC/AC ratio 1.12 within normal range. Estimated weight 573 grams, 48th percentile. Cervix closed and measures 4.3 cm in length. heart rate 143 beasts per minute. SEEN/GROSSLY UNREMARKABLE Lateral ventricles yes Posterior fossa yes Upper lip yes Four-chamber heart yes. 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 Placenta: Posterior and grade 1 with no previa or abruption. Amniotic fluid: Appears within normal limits. Electronically Signed by Magen Lopez MD 04/29/2019 07:51 P
== END ==
LOC: M RAD 16:23
PROVIDERS: ATTEND Advanced Practice Midwife
DX: Z34.82 Encounter for supervision of other normal pregnancy, second trimester (principal); Z3A.23 23 weeks gestation of pregnancy

== ENCOUNTER 2019-05-19 10:08 | Emergency (ER) | payer OTHER ==
[~2019-05-19] VITALS: Ht 160 cm; Wt 81.5 kg
[2019-05-19 10:08] VITALS: BP 118/67
[2019-05-19] MEDS ORDERED: ONDANSETRON 4 MG ORAL DISINTEGRATING TAB (Q0162 PER 1MG) PO ONE (10:45)
[2019-05-19] MEDS ORDERED: AUGM875T28 PO (10:59)
== END 2019-05-19 11:06 | disposition home or self-care (01) ==
LOC: M ED 10:08
DX: O26.892 Other specified pregnancy related conditions, second trimester (principal); O21.9 Vomiting of pregnancy, unspecified; Z3A.26 26 weeks gestation of pregnancy; O99.512 Diseases of the respiratory system complicating pregnancy, second trimester; Z87.442 Personal history of urinary calculi; Z96.0 Presence of urogenital implants; Z79.899 Other long term (current) drug therapy; Z91.030 Bee allergy status
CPT/HCPCS: 99283; Q0162

== ENCOUNTER → 2019-06-07 | Outpatient (CLI) | payer OTHER ==
[~2019-06-07] MED LIST changes: +AUGM875T28 PO
[2019-06-07 20:04] LABS: HEMATOCRIT 33.2 % (36.0-47.0); HEMOGLOBIN 10.9 g/dl (12.0-15.5); MEAN CORPUSCULAR HEMOGLOBIN 30.5 pg (27.0-33.0); MEAN CORPUSCULAR HGB CONC 32.8 g/dl (32.0-36.5); PLATELET COUNT, AUTOMATED 195 10^3/uL (150-450); RED BLOOD COUNT 3.57 10^6/uL (4.00-5.40)
== END ==
LOC: M SMT 13:06
PROVIDERS: ATTEND Advanced Practice Midwife
DX: Z34.82 Encounter for supervision of other normal pregnancy, second trimester (principal)
CPT/HCPCS: 36415; 82950; 85027; 86850; 86900; 86901; J2790